=== PATIENT | male | born 1975 | race Caucasian/White ===

== ENCOUNTER 2021-12-14 13:33 | Emergency (ER) | payer OTHER ==
[~2021-12-14] VITALS: Ht 205.7 cm; Wt 113.4 kg
[2021-12-14 15:58] VITALS: BP 176/83
== END 2021-12-14 15:58 | disposition home or self-care (01) ==
LOC: M.ERS 13:33
DX: M25.562 Pain in left knee (principal); M25.552 Pain in left hip; E11.9 Type 2 diabetes mellitus without complications; Z87.891 Personal history of nicotine dependence